=== PATIENT | female | born 2000 | race Caucasian/White ===

== ENCOUNTER 2019-05-04 22:46 | Emergency (ER) | payer BC ==
[~2019-05-04] VITALS: Ht 160 cm; Wt 72.0 kg
[2019-05-05] MEDS ORDERED: IBUPROFEN 600MG TABLET PO ONE (00:30)
[2019-05-05 04:53] VITALS: BP 117/73
== END 2019-05-05 04:58 | disposition home or self-care (01) ==
LOC: ER 22:46
DX: S00.03XA Contusion of scalp, initial encounter (principal); S00.81XA Abrasion of other part of head, initial encounter; F10.129 Alcohol abuse with intoxication, unspecified; F17.210 Nicotine dependence, cigarettes, uncomplicated; Y90.9 Presence of alcohol in blood, level not specified; Y04.0XXA Assault by unarmed brawl or fight, initial encounter; Y93.89 Activity, other specified; Y92.89 Other specified places as the place of occurrence of the external cause
CPT/HCPCS: 70486; 71045; 81025; 99284